=== PATIENT | female | born 1990 | race Caucasian/White ===

== ENCOUNTER → 2017-10-30 15:21 | Outpatient (CLI) | payer OTHER, MEDICAID, SELFPAY ==
[2017-10-30 17:08] LABS: Urine N gonorrhoeae NOT DETECTED
[2017-10-30 17:13] LABS: Urine Chlamydia NOT DETECTED
== END ==
PROVIDERS: PCP Internal Medicine; Visit Provider Internal Medicine
DX: Z20.2 Contact with and (suspected) exposure to infections with a predominantly sexual mode of transmission (principal)
CPT/HCPCS: 87491; 87591